=== PATIENT | female | born 1970 | race Caucasian/White ===

== ENCOUNTER 2019-09-22 05:35 | Day surgery (SDC) | payer BC ==
[~2019-09-22 05:35] MED LIST: Buffered Lidocaine 1% SYRIN* 1 ML/SYRINGE INTRADERM ONE
[2019-09-22] MEDS ORDERED: Acetaminophen TAB* 325 MG PO ONE (06:00)
[2019-09-22] MEDS ORDERED: Lactated Ringers 1000 ML Bag* 1,000 ML IV SCH (06:00)
[2019-09-22] MEDS ORDERED: ceFAZolin 2 GM in NS PREMIX(*) 2 GM/100 ML BAG IVPB ONE (06:23)
[2019-09-22] MEDS ORDERED: Buffered Lidocaine 1% SYRIN* 1 ML/SYRINGE INTRADERM ONE (06:23)
[2019-09-22] MEDS ORDERED: Acetaminophen TAB* 325 MG ONE (06:23)
[2019-09-22] MEDS ORDERED: fentaNYL* 50 MCG/ML 2 ML VIAL (100 MCG VIAL) ONE (06:51)
[2019-09-22] MEDS ORDERED: Midazolam* 1 MG/ML 2 ML VIAL (2 MG) ONE (06:51)
[2019-09-22] MEDS ORDERED: Lidocaine 2% PF* 10 ML AMP ONE (06:52)
[2019-09-22] MEDS ORDERED: Propofol* 10 MG/ML 20 ML BTL ONE (06:52)
[2019-09-22] MEDS ORDERED: Bupivacaine 0.5%* 50 ML MDV VIAL ONE (07:29)
[2019-09-22] MEDS ORDERED: Dexamethasone IV* 4 MG/ML 1 ML (4 MG) ONE (07:47)
[2019-09-22] MEDS ORDERED: HYDROmorphone INJ1* 1 MG/ML SYRINGE ONE (07:48)
[2019-09-22] MEDS ORDERED: oxyCODONE TAB* 5 MG TAB PO PRN (07:51)
[2019-09-22] MEDS ORDERED: Naloxone* 0.4 MG/ML 1 ML VIAL IV PRN (07:51)
[2019-09-22] MEDS ORDERED: HYDROmorphone INJ1* 1 MG/ML SYRINGE IV PRN (07:51)
[2019-09-22] MEDS ORDERED: Ondansetron INJ* 2 MG/ML VIAL IV PRN (07:51)
[2019-09-22] MEDS ORDERED: PROCHLORPERAZINE INJ 5 MG/ML 2 ML VIAL IV PRN (07:51)
[2019-09-22] MEDS ORDERED: Ondansetron INJ* 2 MG/ML VIAL ONE (08:20)
[2019-09-22] MEDS ORDERED: Ketorolac INJ* 30 MG/ML 1 ML VIAL ONE (08:20)
--- NOTE | 2019-09-22 08:59 | OP ---
Operative Report - Blank - Operative Report Date of Operation: 09/22/19 Note: PATIENT: Desirae Miller DATE OF : 1970 DATE OF SURGERY: 09/22/2019 SURGEON: José Miguel Gonzales MD STEAM TUNNEL FEEDER: MARY JANE Dukes, whos assistance was necessary for positioning, retraction, help with instrumentation, and closure. ANESTHESIOLOGIST: Dr. Alonso PREOPERATIVE DIAGNOSIS: Left peroneal tenosynovitis vs tear. Left calcaneal exostosis. POSTOPERATIVE DIAGNOSIS: Left peroneal tenosynovitis and instability. Left calcaneal exostosis. OPERATION: 1. Left peroneal tendon exploration with synovectomy of peroneal tendon sheath. 2. Left peroneal tendon stabilization procedure with fibular groove deepening osteotomy. 3. Left calcaneal saucerization with excision of an enlarged peroneal tubercle. ANESTHESIA: General IMPLANTS: none TOURNIQUET TIME: Less than 1 hour with a well-padded thigh tourniquet at 250 mmHg. SPECIMENS: none ESTIMATED BLOOD LOSS: minimal COMPLICATIONS: none STATUS: Stable from the operating room to the recovery room and then home. INDICATIONS FOR PROCEDURE: Desirae has had persistent pain and swelling at her left peroneal tendons and enlarged peroneal tubercle. Both operative and non operative treatment alternatives were reviewed. Further, the nature and risks of surgery were reviewed in careful detail, in the office as well as the pre-operative holding area. Our discussions regarding the risks of surgery included, but were not limited to, infection, wound problems, nerve injury, neuroma, RSD, persistent symptoms, blood clot, failure of the surgery, recurrent instability and even the remote chance of catastrophic complication. DESCRIPTION OF PROCEDURE: The patient was seen in the preoperative holding unit and informed written consent was obtained. The appropriate extremity was marked. The patient was then brought to the operating room and carefully positioned on the operating room table. Anesthesia was induced. All bony prominences were padded with great care. A chlorhexidine based pre-scrub was performed followed by a chloraprep prep and drape in standard sterile fashion. A surgical safety pause was then conducted in which we confirmed the appropriate patient, extremity, planned procedure, availability of equipment, indication and administration of prophylactic antibiotics, and DVT prophylaxis in the form of a compression boot on the non-surgical extremity. An Esmarch exsanguination of the limb was then performed and the tourniquet inflated. I utilized an incision overlying the peroneal tendons laterally. I carried the dissection down through the soft tissue to the level of the periosteum and superior peroneal retinaculum (SPR) with care taken to protect the sural nerve, which was not visualized during the procedure. I carefully incised the SPR off of the posterior fibula to expose the peroneal tendons. Dissection of the tendons was carried distally. The tendons were explored at this time for any tears. No discrete tears were appreciated but there was a large amount of inflamed tenosynovium within the tendon sheath. An extensive synovectomy was performed. Additionally, there was a low-lying peroneus brevis muscle belly which was debrided and excised. I then exposed the enlarged peroneal tubercle. I took down the gliding layer and then utilized a rongeur to remove this large tubercle, thus performing a saucerization of the calcaneus. At this point, I carefully inspected the peroneal groove at the posterior aspect of the fibula. This was an abnormally shallow groove and I therefore elected to perform a groove deepening osteotomy procedure. I utilized a small sagittal saw to create a longitudinal osteotomy in the fibula at the margin of the insertion of the SPR. I then utilized a bone tamp and a mallet to impact this area, deepening the groove. I took care to ensure that there were no sharp bony prominences in this area. At this point I carefully planned out the repair of the superior peroneal retinaculum. I then reduced the tendons and they sat nicely in the deepened retro-fibular groove. The wound was copiously irrigated. I repaired the SPR utilizing #1 Vicryl suture in a transosseous horizontal mattress suture pattern. I utilized multiple sutures for this repair, appropriately tensioning the SPR. I was able to pass a [place] under the repaired SPR without difficulty after the repair. We then irrigated the wound copiously again. The wound was closed in a layered fashion utilizing 3-0 Monocryl and 3-0 nylon. A sterile dressing was then applied and the ankle was splinted in a neutral position. All needle and sponge counts were correct at the end of the case. The patient was awakened from anesthesia and transferred to the recovery room in stable condition. There were no complications. ATTESTATION: I attest I was present and scrubbed and performed the critical portions of the procedure myself. POST-OPERATIVE PLAN: The patient will remain [id number] for an anticipated duration of 6 weeks. Follow up will be in 2 weeks for likely suture removal and transition into a short leg cast.
[2019-09-22 09:49] VITALS: BP 123/72
== END 2019-09-22 10:40 | disposition home or self-care (01) ==
LOC: OR 05:35
PROVIDERS: ATTEND Orthopaedic Surgery
DX: S86.312D Strain of muscle(s) and tendon(s) of peroneal muscle group at lower leg level, left leg, subsequent encounter (principal); M76.72 Peroneal tendinitis, left leg; M25.775 Osteophyte, left foot; M25.372 Other instability, left ankle; X58.XXXD Exposure to other specified factors, subsequent encounter; Y92.9 Unspecified place or not applicable; G40.909 Epilepsy, unspecified, not intractable, without status epilepticus
CPT/HCPCS: A9270-GY; J0690; J1100; J1170; J1885; J2001; J2250; J2405; J2704; J3010; J3490